=== PATIENT | female | born 1935 | race Caucasian/White ===

== ENCOUNTER 2017-06-21 | Inpatient (IN) | payer MEDICARE, OTHER ==
[2017-06-21] MEDS ORDERED: Albuterol/Ipratropium 3.0-0.5 MG/3 ML Neb Soln NEB ONE (00:12)
[2017-06-21] MEDS ORDERED: cefTRIAXone 1 GM in Sodium Chloride 0.9% 100 ML IV ONE (01:30)
[2017-06-21] MEDS ORDERED: Azithromycin 500 MG in Sodium Chloride 0.9% 250 ML IV ONE (01:31)
--- NOTE | 2017-06-21 01:36 | EDM.PDOC ---
ED HPI GENERAL MEDICAL PROBLEM - General Chief Complaint: Respiratory Problem Stated Complaint: CAME BY ALETA CARLTON Time Seen by Provider: 06/21/17 00:10 Source of Information: Reports: Patient, Family History Limitations: Reports: Altered Mental Status - History of Present Illness INITIAL COMMENTS - FREE TEXT/NARRATIVE: This is an 81-year-old female. Apparently today she was having a mild stomachache and this evening began to get short of breath and an ambulance was called and they noted her pulse ox was 66% on room air. Even on 6 L by nasal cannula because she doesn't tolerate the mask her pulse ox at 88%. I spoke to the daughter and she indicates that she noted recently that the patient's feet are somewhat puffy. She has no history of congestive heart failure no history of asthma. 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 The patient does have fairly severe dementia she is a DNR and DO NOT INTUBATE patient according to the daughter. I can get no further information from the patient herself. She does have a brokerage coordinator that stays with her but the brokerage coordinator did not come tonight and so I can't glean any further information. According to the daughter the patient and doing fine the last few days with no increasing cough no fever no chills no nausea vomiting or any other acute symptoms. - Related Data Allergies Allergy/AdvReac Type Severity Reaction Status Date / Time No Known Allergies Allergy Verified 06/21/17 00:12 Home Meds: Home Meds Cyanocobalamin (Vitamin B-12) [Vitamin B-12] 1 tab PO DAILY 11/08/15 [History] Solifenacin Succinate [Vesicare] 10 mg PO DAILY 11/08/15 [History] Donepezil [Aricept] 10 mg PO BEDTIME 09/29/16 [History] Metoprolol Succinate [Toprol XL] 25 mg PO DAILY 09/29/16 [History] Memantine [Namenda] 10 mg PO BID 10/03/16 [History] amLODIPine/atorvaSTATin [Amlodipine-Atorvast 10-20 mg] 1 tab PO DAILY 10/03/16 [ History] Pantoprazole [ProTONIX] 40 mg PO DAILY 06/21/17 [History] Potassium Chloride 1 tab PO DAILY 06/21/17 [History] Past Medical History HEENT History: Reports: Cataract, Other (See Below) Other HEENT History: cataract surgery Cardiovascular History: Reports: CAD, Hypertension Respiratory History: Reports: None Genitourinary History: Reports: Retention, Urinary [employer] History: Reports: Musculoskeletal History: Reports: Other (See Below) Other Musculoskeletal History: hip surgury Neurological History: Reports: Alzheimers Disease Psychiatric History: Reports: Alzheimers Disease Oncologic (Cancer) History: Reports: Bladder - Infectious Disease History Infectious Disease History: Reports: Chicken Pox, Influenza - Past Surgical History HEENT Surgical History: Reports: Cataract Surgery Respiratory Surgical History: Reports: None Oncologic Surgical History: Reports: None Dermatological Surgical History: Reports: None Social & Family History - Family History Cardiac: Reports: Hypertension Immunologic: Reports: None - Tobacco Use Smoking Status *Q: Light Tobacco Smoker Years of Tobacco use: 60 Packs/Tins Daily: 0.1 Used Tobacco, but Quit: No Second Hand Smoke Exposure: No - Caffeine Use Caffeine Use: Reports: Coffee - Recreational Drug Use Recreational Drug Use: No ED ROS GENERAL - Review of Systems Review Of Systems: See Below (Please note this review of systems is from the daughter) Constitutional: Denies: Fever, Chills HEENT: Reports: No Symptoms Respiratory: Reports: Shortness of Breath, Wheezing Cardiovascular: Reports: No Symptoms GI/Abdominal: Denies: Abdominal Pain, Nausea, Vomiting Neurological: Reports: Confusion Psychiatric: Reports: Confusion ED EXAM, GENERAL - Physical Exam Exam: See Below Exam Limited By: Altered Mental Status General Appearance: Alert, Anxious, Moderate Distress Eye Exam: Bilateral Eye: Normal Inspection Ears: Normal External Exam, Normal Canal, Normal TMs Nose: Normal Inspection Throat/Mouth: Normal Inspection, Normal Lips, Normal Oropharynx, Normal Voice, Other (Patient does have a hard time speaking without being short of breath) Head: Normocephalic Neck: Supple Respiratory/Chest: Decreased Breath Sounds, Crackles, Wheezing, Other ( Decreased breath sounds in all leavitt with worsening decreased lung sounds in the right base and there are some fine crackles noted). No: Rhonchi Cardiovascular: Regular Rate, Rhythm, Tachycardia GI/Abdominal: Soft, Non-Tender Back Exam: Full Range of Motion Extremities: Other (She is noted to have 1+ edema in her lower extremities bilaterally) Neurological: Alert, Other (Patient has dementia and so she really can't tell you if she is having pain or any recent events) Psychiatric: Anxious Skin Exam: Warm, Dry EKG INTERPRETATION EKG Interpretation Comments: EKG shows a sinus tachycardia, and appearance of an old inferior MO as noted, she has no acute ST elevation but she might have some mild ST depression in the lateral leads noted Course - Vital Signs Last Recorded V/S: Last Vital Signs Temp 100.3 F 06/21/17 00:03 Pulse 93 06/21/17 00:03 Resp 28 H 06/21/17 00:03 BP 144/89 H 06/21/17 00:03 Pulse Ox 91 L 06/21/17 00:25 - Orders/Labs/Meds Orders: Active Orders 24 hr Category Date Time Status EKG 12 Lead [EKG Documentation Completion] [RC] STAT Care 06/21/17 00:11 Active RT Aerosol Therapy [RC] ASDIRECTED Care 06/21/17 00:12 Active Chest 1V Frontal [CR] Stat Exams 06/21/17 00:11 Taken CULTURE BLOOD [BC] Stat Lab 06/21/17 00:30 Received CULTURE BLOOD [BC] Stat Lab 06/21/17 00:40 Received Azithromycin [Zithromax] 500 mg Med 06/21/17 01:31 Active Sodium Chloride 0.9% [Normal Saline] 250 ml IV ONETIME cefTRIAXone [Rocephin] 1 gm Med 06/21/17 01:30 Active Sodium Chloride 0.9% [Normal Saline] 100 ml IV ONETIME Blood Culture x2 Reflex Set [OM.PC] Stat Oth 06/21/17 00:12 Ordered Medication Orders Ceftriaxone Sodium 1 gm/ (Sodium Chloride) 100 mls @ 200 mls/hr IV ONETIME ONE Stop: 06/21/17 01:59 Last Admin: 06/21/17 01:36 Dose: 200 mls/hr Azithromycin 500 mg/ Sodium (Chloride) 250 mls @ 250 mls/hr IV ONETIME ONE Stop: 06/21/17 02:30 Labs: Laboratory Tests 06/21/17 06/21/17 06/21/17 Range/Units 00:10 00:10 00:10 WBC 12.97 H (3.98-10.04) K/mm3 RBC 3.69 L (3.98-5.22) M/mm3 Hgb 10.8 L (11.2-15.7) gm/L Hct 34.8 (34.1-44.9) % MCV 94.3 (79.4-94.8) fl MCH 29.3 (25.6-32.2) pg MCHC 31.0 L (32.2-35.5) g/dl RDW Std Deviation 47.4 H (36.4-46.3) fL Plt Count 229 (182-369) K/mm3 MPV 10.6 (9.4-12.3) fl Neut % (Auto) 85.7 H (34.0-71.1) % Lymph % (Auto) 6.5 L (19.3-51.7) % [place] % (Auto) 6.4 (4.7-12.5) % Eos % (Auto) 0.8 (0.7-5.8) Baso % (Auto) 0.4 (0.1-1.2) % Neut # (Auto) 11.12 H (1.56-6.13) K/mm3 Lymph # (Auto) 0.84 L (1.18-3.74) K/mm3 [place] # (Auto) 0.83 H (0.24-0.36) K/mm3 Eos # (Auto) 0.11 (0.04-0.36) K/mm3 Baso # (Auto) 0.05 (0.01-0.08) K/mm3 Manual Slide Review Abnormal smear Sodium 147 H (136-145) mEq/L Potassium 3.3 L (3.5-5.1) mEq/L Chloride 111 H (98-107) mEq/L Carbon Dioxide 26 (21-32) mEq/L Anion Gap 13.3 (5-15) BUN 30 H (7-18) mg/dL Creatinine 2.2 H (0.55-1.02) mg/dL Est Cr Clr Drug Dosing 14.36 mL/min Estimated GFR (MDRD) 21 (>60) mL/min BUN/Creatinine Ratio 13.6 L (14-18) Glucose 205 H (83-115) mg/dL Lactic Acid (0.4-2.0) mmol/L Calcium 8.6 (8.5-10.1) mg/dL Total Bilirubin 0.7 (0.2-1.0) mg/dL AST 59 H (15-37) U/L ALT 65 H (14-59) U/L Alkaline Phosphatase 131 H (46-116) U/L Troponin I 0.207 H* (0.00-0.056) ng/mL B-Natriuretic Peptide 2246 H (0-100) pg/mL Total Protein 6.8 (6.4-8.2) g/dl Albumin 3.4 (3.4-5.0) g/dl Globulin 3.4 gm/dL Albumin/Globulin Ratio 1.0 (1-2) 06/21/17 Range/Units 00:30 WBC (3.98-10.04) K/mm3 RBC (3.98-5.22) M/mm3 Hgb (11.2-15.7) gm/L Hct (34.1-44.9) % MCV (79.4-94.8) fl MCH (25.6-32.2) pg MCHC (32.2-35.5) g/dl RDW Std Deviation (36.4-46.3) fL Plt Count (182-369) K/mm3 MPV (9.4-12.3) fl Neut % (Auto) (34.0-71.1) % Lymph % (Auto) (19.3-51.7) % [place] % (Auto) (4.7-12.5) % Eos % (Auto) (0.7-5.8) Baso % (Auto) (0.1-1.2) % Neut # (Auto) (1.56-6.13) K/mm3 Lymph # (Auto) (1.18-3.74) K/mm3 [place] # (Auto) (0.24-0.36) K/mm3 Eos # (Auto) (0.04-0.36) K/mm3 Baso # (Auto) (0.01-0.08) K/mm3 Manual Slide Review Sodium (136-145) mEq/L Potassium (3.5-5.1) mEq/L Chloride (98-107) mEq/L Carbon Dioxide (21-32) mEq/L Anion Gap (5-15) BUN (7-18) mg/dL Creatinine (0.55-1.02) mg/dL Est Cr Clr Drug Dosing mL/min Estimated GFR (MDRD) (>60) mL/min BUN/Creatinine Ratio (14-18) Glucose (83-115) mg/dL Lactic Acid 1.6 (0.4-2.0) mmol/L Calcium (8.5-10.1) mg/dL Total Bilirubin (0.2-1.0) mg/dL AST (15-37) U/L ALT (14-59) U/L Alkaline Phosphatase (46-116) U/L Troponin I (0.00-0.056) ng/mL B-Natriuretic Peptide (0-100) pg/mL Total Protein (6.4-8.2) g/dl Albumin (3.4-5.0) g/dl Globulin gm/dL Albumin/Globulin Ratio (1-2) Meds: Medications Generic Name Dose Route Start Last Admin Trade Name Freq PRN Reason Stop Dose Admin Ceftriaxone Sodium 1 gm/ 100 mls @ 200 mls/hr 06/21/17 01:30 06/21/17 01:36 Sodium Chloride IV 06/21/17 01:59 200 mls/hr ONETIME ONE Administration Azithromycin 500 mg/ Sodium 250 mls @ 250 mls/hr 06/21/17 01:31 Chloride IV 06/21/17 02:30 ONETIME ONE Discontinued Medications Generic Name Dose Route Start Last Admin Trade Name Freq PRN Reason Stop Dose Admin Albuterol/Ipratropium 3 ml 06/21/17 00:12 06/21/17 00:21 Duoneb 3.0-0.5 Mg/3 Ml NEB 06/21/17 00:13 3 ml ONETIME ONE Administration - Re-Assessments/Exams Free Text/Narrative Re-Assessment/Exam: 06/21/17 01:55 I spoke to the family and the patient regarding the test results. I also spoke to Dr. Ortiz who is willing to put the patient in the hospital for further evaluation and treatment. Departure - Departure Time of Disposition: 01:55 Disposition: Admitted As Inpatient 66 Condition: Poor Clinical Impression: Hypoxemia, Renal insufficiency, Elevated troponin Pneumonia Qualifiers: Pneumonia type: due to unspecified organism Laterality: right Lung location: lower lobe of lung Qualified Code(s): J18.1 - Lobar pneumonia, unspecified organism Congestive heart failure Qualifiers: Congestive heart failure type: unspecified congestive heart failure type Congestive heart failure chronicity: acute Qualified Code(s): I50.9 - Heart failure, unspecified Dementia Qualifiers: Dementia type: Alzheimer's disease Alzheimer's disease onset: other onset Dementia behavioral disturbance: without behavioral disturbance Qualified Code(s ): G30.8 - Other Alzheimer's disease; F02.80 - Dementia in other diseases classified elsewhere without behavioral disturbance - Discharge Information Additional Instructions: I spoke with Dr. Ortiz she is willing to admit the patient for further evaluation and treatment ED Communication - ED Communication Date/Time Date: 06/21/17 Time Called: 01:57 - Discussed Case With (1) Discussed Case With (1): Admitting Provider Person/s Notified (1): Jammie Ortiz (Will Admit) - My Orders Last 24 Hours: My Active Orders 06/21/17 00:11 EKG 12 Lead [EKG Documentation Completion] [RC] STAT Chest 1V Frontal [CR] Stat 06/21/17 00:12 RT Aerosol Therapy [RC] ASDIRECTED Blood Culture x2 Reflex Set [OM.PC] Stat 06/21/17 00:30 CULTURE BLOOD [BC] Stat 06/21/17 00:40 CULTURE BLOOD [BC] Stat 06/21/17 01:30 cefTRIAXone [Rocephin] 1 gm Sodium Chloride 0.9% [Normal Saline] 100 ml IV ONETIME 06/21/17 01:31 Azithromycin [Zithromax] 500 mg Sodium Chloride 0.9% [Normal Saline] 250 ml IV ONETIME - Assessment/Plan Last 24 Hours: My Active Orders 06/21/17 00:11 EKG 12 Lead [EKG Documentation Completion] [RC] STAT Chest 1V Frontal [CR] Stat 06/21/17 00:12 RT Aerosol Therapy [RC] ASDIRECTED Blood Culture x2 Reflex Set [OM.PC] Stat 06/21/17 00:30 CULTURE BLOOD [BC] Stat 06/21/17 00:40 CULTURE BLOOD [BC] Stat 06/21/17 01:30 cefTRIAXone [Rocephin] 1 gm Sodium Chloride 0.9% [Normal Saline] 100 ml IV ONETIME 06/21/17 01:31 Azithromycin [Zithromax] 500 mg Sodium Chloride 0.9% [Normal Saline] 250 ml IV ONETIME
[2017-06-21] MEDS ORDERED: Furosemide 40 MG/4 ML VIAL IVPUSH ONE (01:58)
[2017-06-21] MEDS ORDERED: Sodium Chloride 0.9% 1,000 ML IV SCH (03:30)
[2017-06-21] MEDS: Enoxaparin 30 MG/0.3 ML Syringe SUBCUT SCH (10:12)
[2017-06-21] MEDS: Memantine 10 MG Tab PO SCH ×2 (10:13→21:18)
[2017-06-21] MEDS ORDERED: Albuterol 0.083% 2.5 MG/3 ML Neb Soln NEB PRN (11:41)
[2017-06-21] MEDS ORDERED: hydrALAZINE 20 MG/ML SDV IVPUSH PRN (11:45)
[2017-06-21] MEDS ORDERED: Sodium Chloride 0.45% 1,000 ML IV SCH (11:45)
--- NOTE | 2017-06-21 11:55 | PCM.HP ---
H&P History of Present Illness - General Date of Service: 06/21/17 Admit Problem/Dx: Admission Diagnosis/Problem Admission Diagnosis/Problem Pneumonia Source of Information: Family, Provider History Limitations: Reports: No Limitations - History of Present Illness Initial Comments - Free Text/Narative: 81 year old female with Alzheimer's dementia, lives at home. She reportedly complained of abdominal discomfort. The EMS was called presumably by her clinical manager home care, she was treated for respiratory distress. The EMS documented an O2 saturation, 66% on room air cf 88% on 6 liters. Lab results documented BNP>2000 ; Tn 0.207; WBC 12.97 (85.7 neutrophils); K 3.3; Cr 2.2. She is being admitted to [facility]. Her daughter has indicated that she is DNR/DNI with comfort care this am. Onset of Symptoms: Reports: Gradual Symptom Onset Date: 06/20/17 Duration of Symptoms: Reports: Hour(s): Location: Reports: Abdomen Quality: Reports: Ache Severity: Moderate Improves with: Reports: Medication Worsens with: Reports: Eating Associated Symptoms: Reports: Confusion, Weakness - Related Data Allergies/Adverse Reactions: Allergies Allergy/AdvReac Type Severity Reaction Status Date / Time No Known Allergies Allergy Verified 06/21/17 00:12 Home Medications: Home Meds Cyanocobalamin (Vitamin B-12) [Vitamin B-12] 1 tab PO DAILY 11/08/15 [History] Solifenacin Succinate [Vesicare] 10 mg PO DAILY 11/08/15 [History] Donepezil [Aricept] 10 mg PO BEDTIME 09/29/16 [History] Metoprolol Succinate [Toprol XL] 25 mg PO DAILY 09/29/16 [History] Memantine [Namenda] 10 mg PO BID 10/03/16 [History] amLODIPine/atorvaSTATin [Amlodipine-Atorvast 10-20 mg] 1 tab PO DAILY 10/03/16 [ History] Pantoprazole [ProTONIX] 40 mg PO DAILY 06/21/17 [History] Past Medical History HEENT History: Reports: Cataract, Other (See Below) Other HEENT History: cataract surgery Cardiovascular History: Reports: CAD, Hypertension Respiratory History: Reports: None Genitourinary History: Reports: Retention, 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: Musculoskeletal History: Reports: Other (See Below) Other Musculoskeletal History: hip surgury Neurological History: Reports: Alzheimers Disease Psychiatric History: Reports: Alzheimers Disease Oncologic (Cancer) History: Reports: Bladder - Infectious Disease History Infectious Disease History: Reports: Chicken Pox, Influenza - Past Surgical History HEENT Surgical History: Reports: Cataract Surgery Cardiovascular Surgical History: Reports: None Respiratory Surgical History: Reports: None Female Surgical History: Reports: None Neurological Surgical History: Reports: None Oncologic Surgical History: Reports: None Dermatological Surgical History: Reports: None Social & Family History - Family History Family Medical History: Noncontributory Cardiac: Reports: Hypertension Immunologic: Reports: None - Tobacco Use Smoking Status *Q: Current Every Day Smoker Years of Tobacco use: 65 Packs/Tins Daily: 0.2 Used Tobacco, but Quit: No Second Hand Smoke Exposure: Yes - Caffeine Use Caffeine Use: Reports: None - Recreational Drug Use Recreational Drug Use: No H&P Review of Systems - Review of Systems: Review Of Systems: See Below General: Reports: Weakness HEENT: Reports: No Symptoms Pulmonary: Reports: No Symptoms Cardiovascular: Reports: No Symptoms Gastrointestinal: Reports: Abdominal Pain Genitourinary: Reports: No Symptoms Musculoskeletal: Reports: No Symptoms Skin: Reports: No Symptoms Psychiatric: Reports: Confusion Neurological: Reports: Confusion Hematologic/Lymphatic: Reports: No Symptoms Immunologic: Reports: No Symptoms Exam - Exam Exam: See Below - Vital Signs Vital Signs: Last Vital Signs Temp 37.2 C 06/21/17 07:27 Pulse 82 06/21/17 07:27 Resp 20 06/21/17 07:27 BP 136/80 06/21/17 07:27 Pulse Ox 88 L 06/21/17 10:49 Weight: 57.924 kg - Exam Quality Assessment: Supplemental Oxygen, DVT Prophylaxis General: Alert, Oriented, Cooperative HEENT: Conjunctiva Clear, Nares Patent, Normal Nasal Septum, Posterior Pharynx Clear, Pupils Equal, Pupils Reactive Neck: Supple, Trachea Midline Lungs: Normal Respiratory Effort, Decreased Breath Sounds, Crackles, Wheezing Cardiovascular: Regular Rate, Regular Rhythm GI/Abdominal Exam: Normal Bowel Sounds, Soft, Non-Tender, No Organomegaly, No Distention (Female) Exam: Deferred Rectal (Female) Exam: Deferred Back Exam: Normal Inspection Extremities: Normal Inspection, Pedal Edema Skin: Warm Neurological: Cranial Nerves Intact Neuro Extensive - Mental Status: Alert, Normal Mood/Affect, Normal Cognition Neuro Extensive - Motor, Sensory, Reflexes: CN II-XII Intact Psychiatric: Alert - Patient Data Lab Results Last 24 hrs: Laboratory Results - last 24 hr 06/21/17 06/21/17 06/21/17 Range/Units 05:41 05:41 05:41 WBC 9.51 (3.98-10.04) K/mm3 RBC 3.33 L (3.98-5.22) M/mm3 Hgb 9.9 L (11.2-15.7) gm/L Hct 31.2 L (34.1-44.9) % MCV 93.7 (79.4-94.8) fl MCH 29.7 (25.6-32.2) pg MCHC 31.7 L (32.2-35.5) g/dl RDW Std Deviation 47.0 H (36.4-46.3) fL Plt Count 188 (182-369) K/mm3 MPV 10.9 (9.4-12.3) fl Sodium 147 H (136-145) mEq/L Potassium 3.3 L (3.5-5.1) mEq/L Chloride 109 H (98-107) mEq/L Carbon Dioxide 26 (21-32) mEq/L Anion Gap 15.3 H (5-15) BUN 30 H (7-18) mg/dL Creatinine 1.9 H (0.55-1.02) mg/dL Est Cr Clr Drug Dosing 20.05 mL/min Estimated GFR (MDRD) 25 (>60) mL/min BUN/Creatinine Ratio 15.8 (14-18) Glucose 144 H (83-115) mg/dL Calcium 8.1 L (8.5-10.1) mg/dL B-Natriuretic Peptide 2571 H (0-100) pg/mL Result Diagrams: 06/21/17 05:41 06/21/17 05:41 *Q Meaningful Use (ADM) - VTE *Q VTE Criteria *Q: - Stroke *Q Stroke Criteria *Q: - AMI *Q AMI Criteria *Q: - Problem List (1) Confusion SNOMED Code(s): 166124921 ICD Code: R41.0 - DISORIENTATION, UNSPECIFIED Status: Acute Current Visit : Yes (2) Congestive heart failure SNOMED Code(s): 63903907 ICD Code: I50.9 - HEART FAILURE, UNSPECIFIED Status: Acute Current Visit : Yes Qualifiers: Congestive heart failure type: unspecified congestive heart failure type Congestive heart failure chronicity: acute Qualified Code(s): I50.9 - Heart failure, unspecified (3) Dementia SNOMED Code(s): 71555255 ICD Code: F03.90 - UNSPECIFIED DEMENTIA WITHOUT BEHAVIORAL DISTURBANCE Status: Acute Current Visit: Yes Qualifiers: Dementia type: Alzheimer's disease Alzheimer's disease onset: other onset Dementia behavioral disturbance: without behavioral disturbance Qualified Code(s): G30.8 - Other Alzheimer's disease; F02.80 - Dementia in other diseases classified elsewhere without behavioral disturbance (4) Hypoxemia SNOMED Code(s): 206542567 ICD Code: R09.02 - HYPOXEMIA Status: Acute Current Visit: Yes (5) Pneumonia SNOMED Code(s): 613628468 ICD Code: J18.9 - PNEUMONIA, UNSPECIFIED ORGANISM Status: Acute Current Visit: Yes Qualifiers: Pneumonia type: due to unspecified organism Laterality: right Lung location: lower lobe of lung Qualified Code(s): J18.1 - Lobar pneumonia, unspecified organism (6) Renal insufficiency SNOMED Code(s): 665482760, 257552906 ICD Code: N28.9 - DISORDER OF KIDNEY AND URETER, UNSPECIFIED Status: Acute Current Visit: Yes (7) Anemia SNOMED Code(s): 945062130 ICD Code: D64.9 - ANEMIA, UNSPECIFIED Status: Acute Current Visit: No Qualifiers: Anemia type: unspecified type Qualified Code(s): D64.9 - Anemia, unspecified (8) Demand ischemia SNOMED Code(s): 927545232 ICD Code: I24.8 - OTHER FORMS OF ACUTE ISCHEMIC HEART DISEASE Status: Acute Current Visit: No (9) Hypertension SNOMED Code(s): 74637566 ICD Code: I10 - ESSENTIAL (PRIMARY) HYPERTENSION Status: Acute Current Visit: Yes (10) Diabetes mellitus SNOMED Code(s): 85137129 ICD Code: E11.9 - TYPE 2 DIABETES MELLITUS WITHOUT COMPLICATIONS Status: Acute Current Visit: Yes (11) Elevated troponin SNOMED Code(s): 150193086, 442739351 ICD Code: R74.8 - ABNORMAL LEVELS OF OTHER SERUM ENZYMES Status: Acute Current Visit: Yes Problem List Initiated/Reviewed/Updated: Yes Orders Last 24hrs: Active Orders 24 hr Category Date Time Status Patient Status [ADT] Routine ADT 06/21/17 03:08 Active Activity as Tolerated [RC] .Routine Care 06/21/17 11:37 Ordered Antiembolic Devices [RC] BID Care 06/21/17 03:57 Active Oxygen Therapy [RC] ASDIRECTED Care 06/21/17 03:25 Active RT Aerosol Therapy [RC] ASDIRECTED Care 06/21/17 11:40 Ordered Up With Assistance [RC] ASDIRECTED Care 06/21/17 03:24 Active Consult to Occupational Therapy [OT Evaluation and Cons 06/22/17 09:00 Ordered Treatment] [CONS] Routine Consult to Physical Therapy [PT Evaluation and Cons 06/22/17 09:00 Ordered Treatment] [CONS] Routine Consult to Engine Mechanic [CONS] Routine Cons 06/22/17 09:00 Ordered Full Liquid Diet [DIET] Diet 06/21/17 Breakfast Active B-TYPE NATRIURETIC PEPTIDE,BNP [CHEM] Routine Lab 06/23/17 05:00 Ordered BASIC METABOLIC PANEL,BMP [CHEM] DAILY Lab 06/22/17 05:00 Ordered BASIC METABOLIC PANEL,BMP [CHEM] DAILY Lab 06/23/17 05:00 Ordered BASIC METABOLIC PANEL,BMP [CHEM] DAILY Lab 06/24/17 05:00 Ordered BASIC METABOLIC PANEL,BMP [CHEM] DAILY Lab 06/25/17 05:00 Ordered BLOOD GAS ARTERIAL [BG] Urgent Lab 06/21/17 11:38 Ordered CBC WITH AUTO DIFF [HEME] DAILY Lab 06/22/17 05:00 Ordered CBC WITH AUTO DIFF [HEME] DAILY Lab 06/23/17 05:00 Ordered CBC WITH AUTO DIFF [HEME] DAILY Lab 06/24/17 05:00 Ordered CBC WITH AUTO DIFF [HEME] DAILY Lab 06/25/17 05:00 Ordered CRP [C-REACTIVE PROTEIN] [CHEM] DAILY Lab 06/22/17 05:00 Ordered CRP [C-REACTIVE PROTEIN] [CHEM] DAILY Lab 06/23/17 05:00 Ordered CRP [C-REACTIVE PROTEIN] [CHEM] DAILY Lab 06/24/17 05:00 Ordered CRP [C-REACTIVE PROTEIN] [CHEM] DAILY Lab 06/25/17 05:00 Ordered MAGNESIUM [CHEM] DAILY Lab 06/22/17 05:00 Ordered MAGNESIUM [CHEM] DAILY Lab 06/23/17 05:00 Ordered MAGNESIUM [CHEM] DAILY Lab 06/24/17 05:00 Ordered MAGNESIUM [CHEM] DAILY Lab 06/25/17 05:00 Ordered MYCOPLASMA PNEUMONIAE IGM AB [CHEM] Routine Lab 06/21/17 16:00 Ordered Acetaminophen [Tylenol] Med 06/21/17 11:54 Ordered 650 mg PO Q6H PRN Albuterol [Proventil Neb Soln] Med 06/21/17 11:41 Ordered 2.5 mg NEB Q4HRRT PRN Albuterol/Ipratropium [DuoNeb 3.0-0.5 MG/3 ML] Med 06/21/17 13:00 Ordered 3 ml NEB QID Azithromycin [Zithromax] 500 mg Med 06/22/17 09:45 Ordered Sodium Chloride 0.9% [Normal Saline] 250 ml IV Q24H Donepezil [Aricept] Med 06/21/17 21:00 Active 10 mg PO BEDTIME Enoxaparin [Lovenox] Med 06/21/17 09:00 Active 30 mg SUBCUT DAILY Furosemide [Lasix] Med 06/21/17 16:00 Once 20 mg IVPUSH ONETIME ONE Memantine [Namenda] Med 06/21/17 10:00 Active 10 mg PO BID Metoprolol Succinate [Toprol XL] Med 06/22/17 11:00 Active 25 mg PO DAILY Pantoprazole [ProTONIX] Med 06/22/17 10:00 Active 40 mg PO DAILY Sodium Chloride 0.45% 1,000 ml Med 06/21/17 11:45 Ordered IV ASDIRECTED Sodium Chloride 0.9% [Normal Saline] 1,000 ml Med 06/21/17 03:30 Active IV ASDIRECTED Trospium [Sanctura] Med 06/22/17 06:00 Active 20 mg PO ACBREAKFAST cefTRIAXone [Rocephin] 2 gm Med 06/22/17 13:00 Ordered Sodium Chloride 0.9% [Normal Saline] 100 ml IV Q24H hydrALAZINE [Apresoline] Med 06/21/17 11:45 Ordered 20 mg IVPUSH Q8H PRN MEKA Hose [Antiembolic Hose] [OM.PC] Routine Oth 06/21/17 03:56 Ordered Code Status [Resuscitation Status] Routine Resus Stat 06/21/17 03:25 Ordered Medication Orders Acetaminophen (Tylenol) 650 mg PO Q6H PRN PRN Reason: Fever Albuterol (Proventil Neb Soln) 2.5 mg NEB Q4HRRT PRN PRN Reason: Shortness of Breath Albuterol/Ipratropium (Duoneb 3.0-0.5 Mg/3 Ml) 3 ml NEB QID USMAN Donepezil HCl (Aricept) 10 mg PO BEDTIME USMAN Enoxaparin Sodium (Lovenox) 30 mg SUBCUT DAILY [facility] Last Admin: 06/21/17 10:12 Dose: 30 mg Furosemide (Lasix) 20 mg IVPUSH ONETIME ONE Stop: 06/21/17 16:01 Hydralazine HCl (Apresoline) 20 mg IVPUSH Q8H PRN PRN Reason: Hypertension Sodium Chloride (Normal Saline) 1,000 mls @ 25 mls/hr IV ASDIRECTED USMAN Stop: 06/25/17 03:31 Last Admin: 06/21/17 07:12 Dose: 25 mls/hr Azithromycin 500 mg/ Sodium (Chloride) 250 mls @ 250 mls/hr IV Q24H USMAN Sodium Chloride (Sodium Chloride 0.45%) 1,000 mls @ 50 mls/hr IV ASDIRECTED [facility]MAN Ceftriaxone Sodium 2 gm/ (Sodium Chloride) 100 mls @ 200 mls/hr IV Q24H USMAN Memantine (Namenda) 10 mg PO BID [facility] Last Admin: 06/21/17 10:13 Dose: 10 mg Metoprolol Succinate (Toprol Xl) 25 mg PO DAILY [facility] Pantoprazole Sodium (Protonix) 40 mg PO DAILY [facility] Trospium (Sanctura) 20 mg PO ACBREAKFAST [facility] Assessment/Plan Comment:: Impression: Febrile with AMS, RLL PNA Hypoxia Systolic HF, LVEF unknown AMI, can not exclude type 1 Chronic CAD HTN HLD Plan: Continue Zithromax/Rocephin Nebs O2, titrate sat>90% Swallow study Home meds Daily Labs DVT/GI prophylaxis SW/PT/OT DNR/DNI/Comfort Care
[2017-06-21] MEDS: Potassium Chloride 10% 20 MEQ/15 ML Soln 30 ML UD Cup PO SCH (15:20)
[2017-06-21] MEDS: Acetaminophen Soln 650 MG/20.3 ML UD Cup PO PRN ×2 (15:33→23:56)
[2017-06-21] MEDS: Albuterol/Ipratropium 3.0-0.5 MG/3 ML Neb Soln NEB SCH ×2 (15:37→20:37)
[2017-06-21] MEDS ORDERED: Metoprolol Succinate 25 MG Tab.ER PO ONE (15:40)
[2017-06-21] MEDS ORDERED: Acetaminophen 650 MG Supp RECTAL PRN (15:43)
[2017-06-21] MEDS ORDERED: Furosemide 20 MG/2 ML VIAL IVPUSH ONE (16:00)
[2017-06-21] MEDS ORDERED: Pantoprazole 40 MG Tab.CR PO ONE (16:00)
[2017-06-21] MEDS: Donepezil 10 MG Tab PO SCH (21:18)
[2017-06-22] MEDS: Albuterol/Ipratropium 3.0-0.5 MG/3 ML Neb Soln NEB SCH ×4 (06:39→20:48)
[2017-06-22] MEDS: Trospium 20 MG Tab PO SCH (08:06)
[2017-06-22] MEDS: Enoxaparin 30 MG/0.3 ML Syringe SUBCUT SCH (08:06)
[2017-06-22] MEDS: Memantine 10 MG Tab PO SCH ×2 (08:07→20:14)
[2017-06-22] MEDS: Potassium Chloride 10% 20 MEQ/15 ML Soln 30 ML UD Cup PO SCH (08:08)
--- NOTE | 2017-06-22 08:14 | CR ---
Chest: Portable view of the chest was obtained. Comparison: Previous chest x-ray of 11/08/15. Heart is enlarged. Pulmonary vessels are increased. Curly B lines compatible with interstitial edema is seen. More focal density seen within the right mid to lower lung which may represent asymmetric pulmonary edema versus pneumonia. Small pleural effusions are seen. Impression: 1. Cardiomegaly with pulmonary vascular congestion and interstitial edema. 2. Focal areas of increased density within the right mid and lower lung. As mentioned above, this could represent asymmetric pulmonary edema or pneumonia. Diagnostic code #3
[2017-06-22] MEDS: Pantoprazole 40 MG Tab.CR PO SCH ×2 (08:19→09:42)
[2017-06-22] MEDS: Metoprolol Succinate 25 MG Tab.ER PO SCH (08:20)
[2017-06-22] MEDS: Acetaminophen Soln 650 MG/20.3 ML UD Cup PO PRN ×2 (08:22→21:09)
--- NOTE | 2017-06-22 08:47 | PCM.PN ---
- General Info Date of Service: 06/22/17 Admission Dx/Problem (Free Text): Admission Diagnosis/Problem Admission Diagnosis/Problem Pneumonia Subjective Update: Follow Up Functional Status: Reports: Pain Controlled, Tolerating Diet, Urinating. Denies : New Symptoms - Review of Systems General: Denies: Fever, Weakness, Fatigue, Malaise, Chills HEENT: Reports: No Symptoms Pulmonary: Reports: Shortness of Breath. Denies: Wheezing Cardiovascular: Denies: Chest Pain Gastrointestinal: Denies: Abdominal Pain, Difficulty Swallowing, Nausea, Vomiting Genitourinary: Reports: No Symptoms Musculoskeletal: Reports: No Symptoms Skin: Reports: No Symptoms Neurological: Denies: Confusion, Difficulty Walking, Weakness, Gait Disturbance Psychiatric: Denies: Depression, Anxiety, Agitation, Hallucinations Systems Review Comment:: No overnight or acute issues. She "feels better". She has no new complaints. She is currently on 8L FM sating at 90%. - Patient Data Vitals - Most Recent: Last Vital Signs Temp 38.1 C 06/22/17 08:23 Pulse 102 H 06/22/17 08:23 Resp 24 H 06/22/17 08:10 BP 163/79 H 06/22/17 08:20 Pulse Ox 88 L 06/22/17 08:23 Weight - Most Recent: 56.971 kg I&O - Last 24 Hours: Intake & Output 06/21/17 06/22/17 06/22/17 22:59 06:59 14:59 Intake Total 1071 160 Output Total 700 400 Balance 371 -240 Lab Results Last 24 Hours: Laboratory Results - last 24 hr 06/21/17 06/22/17 06/22/17 Range/Units 11:38 05:40 05:40 WBC 10.03 (3.98-10.04) K/mm3 RBC 3.45 L (3.98-5.22) M/mm3 Hgb 10.3 L (11.2-15.7) gm/L Hct 32.3 L (34.1-44.9) % MCV 93.6 (79.4-94.8) fl MCH 29.9 (25.6-32.2) pg MCHC 31.9 L (32.2-35.5) g/dl RDW Std Deviation 47.2 H (36.4-46.3) fL Plt Count 183 (182-369) K/mm3 MPV 11.1 (9.4-12.3) fl Neut % (Auto) 71.9 H (34.0-71.1) % Lymph % (Auto) 16.6 L (19.3-51.7) % [place] % (Auto) 10.4 (4.7-12.5) % Eos % (Auto) 0.4 L (0.7-5.8) Baso % (Auto) 0.6 (0.1-1.2) % Neut # (Auto) 7.22 H (1.56-6.13) K/mm3 Lymph # (Auto) 1.66 (1.18-3.74) K/mm3 [place] # (Auto) 1.04 H (0.24-0.36) K/mm3 Eos # (Auto) 0.04 (0.04-0.36) K/mm3 Baso # (Auto) 0.06 (0.01-0.08) K/mm3 Manual Slide Review Not Reportable Puncture Site Rt radial ABG pH 7.49 H (7.35-7.45) ABG pCO2 35.7 (35.0-45.0) mmHg ABG pO2 66.0 L (80.0-100.0) mmHg ABG HCO3 26.8 H (22.0-26.0) meq/L ABG O2 Saturation 90.4 L (96.0-97.0) % ABG Base Excess 3.7 H (-2-2.0) Ramon Test Positive A-a Gradient 209 mmHg O2 Delivery Device Simple mask Oxygen Flow Rate 8.0 FiO2 50.00 (21.00-100.00) % Sodium 146 H (136-145) mEq/L Potassium 3.4 L (3.5-5.1) mEq/L Chloride 108 H (98-107) mEq/L Carbon Dioxide 28 (21-32) mEq/L Anion Gap 13.4 (5-15) BUN 31 H (7-18) mg/dL Creatinine 1.6 H (0.55-1.02) mg/dL Est Cr Clr Drug Dosing 23.81 mL/min Estimated GFR (MDRD) 31 (>60) mL/min BUN/Creatinine Ratio 19.4 H (14-18) Glucose 107 (83-115) mg/dL Calcium 8.4 L (8.5-10.1) mg/dL Magnesium 1.8 (1.8-2.4) mg/dl C-Reactive Protein 6.0 H* (<1.0) mg/dL Med Orders - Current: Current Medications Acetaminophen (Tylenol) 650 mg PO Q6H PRN PRN Reason: Fever Last Admin: 06/22/17 08:22 Dose: 650 mg Acetaminophen (Tylenol) 650 mg RECTAL Q6H PRN PRN Reason: Fever Albuterol (Proventil Neb Soln) 2.5 mg NEB Q4HRRT PRN PRN Reason: Shortness of Breath Last Admin: 06/21/17 12:21 Dose: 2.5 mg Albuterol/Ipratropium (Duoneb 3.0-0.5 Mg/3 Ml) 3 ml NEB QIDRT [facility] Last Admin: 06/22/17 06:39 Dose: 3 ml Donepezil HCl (Aricept) 10 mg PO BEDTIME [facility] Last Admin: 06/21/17 21:18 Dose: 10 mg Enoxaparin Sodium (Lovenox) 30 mg SUBCUT DAILY [facility] Last Admin: 06/22/17 08:06 Dose: 30 mg Hydralazine HCl (Apresoline) 20 mg IVPUSH Q8H PRN PRN Reason: Hypertension Azithromycin 500 mg/ Sodium (Chloride) 250 mls @ 250 mls/hr IV Q24H [facility] Ceftriaxone Sodium 2 gm/ (Sodium Chloride) 100 mls @ 200 mls/hr IV Q24H [facility] Memantine (Namenda) 10 mg PO BID [facility] Last Admin: 06/22/17 08:07 Dose: 10 mg Metoprolol Succinate (Toprol Xl) 25 mg PO DAILY [facility] Last Admin: 06/22/17 08:20 Dose: 25 mg Pantoprazole Sodium (Protonix) 40 mg PO DAILY [facility] Last Admin: 06/22/17 08:19 Dose: 40 mg Potassium Chloride (Potassium Chloride) 40 meq PO DAILY [facility] Stop: 06/23/17 09:01 Last Admin: 06/22/17 08:08 Dose: 40 meq Trospium (Sanctura) 20 mg PO ACBREAKFAST [facility] Last Admin: 06/22/17 08:06 Dose: 20 mg Discontinued Medications Albuterol/Ipratropium (Duoneb 3.0-0.5 Mg/3 Ml) 3 ml NEB ONETIME ONE Stop: 06/21/17 00:13 Last Admin: 06/21/17 00:21 Dose: 3 ml Furosemide (Lasix) 20 mg IVPUSH NOW ONE Stop: 06/21/17 01:59 Last Admin: 06/21/17 02:11 Dose: 20 mg Furosemide (Lasix) 20 mg IVPUSH ONETIME ONE Stop: 06/21/17 16:01 Last Admin: 06/21/17 15:20 Dose: 20 mg Ceftriaxone Sodium 1 gm/ (Sodium Chloride) 100 mls @ 200 mls/hr IV ONETIME ONE Stop: 06/21/17 01:59 Last Admin: 06/21/17 01:36 Dose: 200 mls/hr Azithromycin 500 mg/ Sodium (Chloride) 250 mls @ 250 mls/hr IV ONETIME ONE Stop: 06/21/17 02:30 Last Admin: 06/21/17 02:18 Dose: 250 mls/hr Sodium Chloride (Normal Saline) 1,000 mls @ 25 mls/hr IV ASDIRECTED [facility] Stop: 06/25/17 03:31 Last Admin: 06/21/17 07:12 Dose: 25 mls/hr Sodium Chloride (Sodium Chloride 0.45%) 1,000 mls @ 50 mls/hr IV ASDIRECTED [facility] Last Admin: 06/21/17 12:36 Dose: 50 mls/hr Metoprolol Succinate (Toprol Xl) 25 mg PO ONETIME ONE Stop: 06/21/17 15:41 Last Admin: 06/21/17 15:52 Dose: 25 mg Pantoprazole Sodium (Protonix) 40 mg PO ONETIME ONE Stop: 06/21/17 16:01 Last Admin: 06/21/17 15:52 Dose: 40 mg - Exam Quality Assessment: Supplemental Oxygen General: Alert, Oriented, Cooperative, No Acute Distress, Other (Comfortable) HEENT: Pupils Equal, Pupils Reactive, EOMI, Mucous Membr. Moist/[place] Neck: Trachea Midline, No JVD, No Thyromegaly, Other (No accesory musckle use ) Lungs: Normal Respiratory Effort, Decreased Breath Sounds, Other (midsternal scar) Cardiovascular: Regular Rate, Regular Rhythm GI/Abdominal Exam: Normal Bowel Sounds, Soft, Non-Tender, No Organomegaly, No Distention, No Abnormal Bruit, No Mass (Female) Exam: Deferred Back Exam: Normal Inspection, Decreased Range of Motion Extremities: Normal Inspection, Normal Range of Motion, Non-Tender, No Pedal Edema, Normal Capillary Refill Skin: Warm, Dry, Intact Neurological: No New Focal Deficit Psy/Mental Status: Alert, Normal Affect, Normal Mood - Problem List Review Problem List Initiated/Reviewed/Updated: Yes - Plan Plan:: Impression: Acute: RLL PNA - Risk factor:Alzheimer's Dementia (High risk for Aspiration), Hx/o COPD and Still on Active Smoker - IS Q2 awake - Continue IV Rocephin and Azithromycin - Follow Up CXR in AM Hypoxia - Likely 2/2 above +/- CHF - Continue Supplemental O2 - Titrate to keep O2 sat bet 88-90% - RT care Systolic HF, LVEF unknown - Hx/o CABG - No 2D echo avail for review - Daily diuretic - BNP 2246 ---> 2571 - 2D echo now - Salt restriction AMI, can not exclude type 1 - Has chronic Troponin Leak since 11/08/2015 - Continue Lovenox SubQ, BB and Statin - Start low dose ASA at 81 mg po daily in am and 162 mg po x 1 now Resolved: S/p Febrile with AMS Chronic: CAD S/p CABG Hx/o COPD HTN HLD CKD Stage 3 OAB/Urinary Retention Alzheimer's Dementia Nicotine Dependence Vit B12 Deficiency Hx/o Melena and GI Bleed Plan: She is clinically much better Continue current treatment Resume regular home diet after bedside swallow Routine AM Labs DVT/GI prophylaxis SW/PT/OT Additional orders as above Code Status: DNR/DNI/Comfort Care
[2017-06-22] MEDS ORDERED: Azithromycin 500 MG in Sodium Chloride 0.9% 250 ML IV SCH (10:00)
[2017-06-22] MEDS ORDERED: cefTRIAXone 2 GM in Sodium Chloride 0.9% 100 ML IV SCH (13:00)
[2017-06-22] MEDS ORDERED: Aspirin 81 MG Tab.EC PO ONE (14:00)
[2017-06-22] MEDS ORDERED: Bumetanide 1 MG/4 ML MDV IVPUSH ONE (14:00)
[2017-06-22] MEDS ORDERED: Morphine 2 MG/ML Syringe ONE (16:13)
[2017-06-22] MEDS: Morphine 2 MG/ML Syringe IVPUSH PRN ×2 (16:18→19:34)
[2017-06-22] MEDS: Donepezil 10 MG Tab PO SCH (20:14)
[2017-06-22] MEDS: LORazepam 2 MG/ML MDV IVPUSH PRN (21:07)
[2017-06-23] MEDS: Morphine 2 MG/ML Syringe IVPUSH PRN (03:09)
[2017-06-23] MEDS: LORazepam 2 MG/ML MDV IVPUSH PRN (05:00)
[2017-06-23] MEDS: Metoprolol Tartrate 5 MG/5 ML SDV IVPUSH PRN ×2 (06:04→08:29)
[2017-06-23] MEDS: Albuterol/Ipratropium 3.0-0.5 MG/3 ML Neb Soln NEB SCH ×2 (06:29→10:09)
[2017-06-23] MEDS ORDERED: Bumetanide 1 MG/4 ML MDV IVPUSH ONE (06:49)
[2017-06-23] MEDS ORDERED: Morphine 2 MG/ML Syringe IVPUSH PRN (06:49)
[2017-06-23] MEDS: Trospium 20 MG Tab PO SCH (06:51)
[2017-06-23] MEDS ORDERED: LORazepam 2 MG/ML MDV IVPUSH PRN (06:53)
[2017-06-23] MEDS ORDERED: methylPREDNISolone Sodium Succinate 125 MG/2 ML SDV IVPUSH SCH (07:00)
[2017-06-23] MEDS ORDERED: Levofloxacin/Dextrose 5%-Water 750 MG in Premix Bag 1 BAG IV SCH (08:00)
[2017-06-23] MEDS: Metoprolol Succinate 25 MG Tab.ER PO SCH (08:23)
[2017-06-23] MEDS: Pantoprazole 40 MG Tab.CR PO SCH (08:24)
[2017-06-23] MEDS: Memantine 10 MG Tab PO SCH (08:25)
[2017-06-23] MEDS: Enoxaparin 30 MG/0.3 ML Syringe SUBCUT SCH (08:25)
--- NOTE | 2017-06-23 08:25 | PCM.PN ---
- General Info Date of Service: 06/23/17 Admission Dx/Problem (Free Text): Admission Diagnosis/Problem Admission Diagnosis/Problem Pneumonia Patient seen early this morning; nursing reported hypoxic most of the night with sats at best of 90% on NRB mask despite efforts and RT interventions/ treatments. Patient anxious early in shift, but ativan order given and rec'd with some relief- rested well after that. Patient is alert and pleasant when I see her this morning, does not appear in distress at all. Confused. Denies c/o pain, SOB, CP, unsure of how much she comprehends as also has baseline dementia and talks jibberish most of our conversation. Nursing reports during my exam and visit is "the best she has been all night". 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 B/P's are stable. Functional Status: Reports: Pain Controlled, Tolerating Diet, Ambulating (up to BR with assist, HR up when OOB and ambulatory), Urinating - Review of Systems General: Denies: Fever, Fatigue HEENT: Reports: No Symptoms Pulmonary: Reports: Cough Cardiovascular: Denies: Chest Pain (d) - Patient Data Vitals - Most Recent: Last Vital Signs Temp 97.5 F 06/23/17 07:47 Pulse 142 H 06/23/17 07:47 Resp 12 06/23/17 07:47 BP 134/64 06/23/17 07:47 Pulse Ox 87 L 06/23/17 07:47 Weight - Most Recent: 122 lb 14.4 oz I&O - Last 24 Hours: Intake & Output 06/22/17 06/23/17 06/23/17 22:59 06:59 14:59 Intake Total 1190 400 Output Total 525 300 Balance 665 100 Lab Results Last 24 Hours: Laboratory Results - last 24 hr 06/22/17 06/23/17 06/23/17 Range/Units 15:58 05:45 05:45 WBC 11.22 H (3.98-10.04) K/mm3 RBC 3.60 L (3.98-5.22) M/mm3 Hgb 10.7 L (11.2-15.7) gm/L Hct 34.1 (34.1-44.9) % MCV 94.7 (79.4-94.8) fl MCH 29.7 (25.6-32.2) pg MCHC 31.4 L (32.2-35.5) g/dl RDW Std Deviation 47.6 H (36.4-46.3) fL Plt Count 182 (182-369) K/mm3 MPV 11.5 (9.4-12.3) fl Neut % (Auto) 80.5 H (34.0-71.1) % Lymph % (Auto) 10.6 L (19.3-51.7) % Daniels % (Auto) 7.9 (4.7-12.5) % Eos % (Auto) 0.3 L (0.7-5.8) Baso % (Auto) 0.4 (0.1-1.2) % Neut # (Auto) 9.03 H (1.56-6.13) K/mm3 Lymph # (Auto) 1.19 (1.18-3.74) K/mm3 Daniels # (Auto) 0.89 H (0.24-0.36) K/mm3 Eos # (Auto) 0.03 L (0.04-0.36) K/mm3 Baso # (Auto) 0.05 (0.01-0.08) K/mm3 Puncture Site Rt radial ABG pH 7.51 H (7.35-7.45) ABG pCO2 36.1 (35.0-45.0) mmHg ABG pO2 43.0 L (80.0-100.0) mmHg ABG HCO3 28.7 H (22.0-26.0) meq/L ABG O2 Saturation 77.0 L (96.0-97.0) % ABG Base Excess 5.7 H (-2-2.0) A-a Gradient 104 mmHg O2 Delivery Device Venturi Oxygen Flow Rate 4.0 FiO2 30.00 (21.00-100.00) % Sodium 146 H (136-145) mEq/L Potassium 4.0 (3.5-5.1) mEq/L Chloride 108 H (98-107) mEq/L Carbon Dioxide 31 (21-32) mEq/L Anion Gap 11.0 (5-15) BUN 38 H (7-18) mg/dL Creatinine 1.5 H (0.55-1.02) mg/dL Est Cr Clr Drug Dosing 25.40 mL/min Estimated GFR (MDRD) 33 (>60) mL/min BUN/Creatinine Ratio 25.3 H (14-18) Glucose 128 H (83-115) mg/dL Calcium 9.1 (8.5-10.1) mg/dL Magnesium 2.1 (1.8-2.4) mg/dl C-Reactive Protein 11.8 H* (<1.0) mg/dL Med Orders - Current: Current Medications Acetaminophen (Tylenol) 650 mg PO Q6H PRN PRN Reason: Fever Last Admin: 06/22/17 21:09 Dose: 650 mg Acetaminophen (Tylenol) 650 mg RECTAL Q6H PRN PRN Reason: Fever Albuterol/Ipratropium (Duoneb 3.0-0.5 Mg/3 Ml) 3 ml NEB QIDRT [facility] Last Admin: 06/23/17 06:29 Dose: 3 ml Aspirin (Aspirin) 81 mg PO DAILY [facility] Bumetanide (Bumex) 1 mg PO DAILY [facility] Donepezil HCl (Aricept) 10 mg PO BEDTIME [facility] Last Admin: 06/22/17 20:14 Dose: 10 mg Enoxaparin Sodium (Lovenox) 30 mg SUBCUT DAILY [facility] Last Admin: 06/22/17 08:06 Dose: 30 mg Hydralazine HCl (Apresoline) 20 mg IVPUSH Q8H PRN PRN Reason: Hypertension Levofloxacin/Dextrose 750 mg/ (Premix) 150 mls @ 100 mls/hr IV Q48H [facility] Piperacillin Sod/Tazobactam (Sod 4.5 gm/ Sodium Chloride) 100 mls @ 25 mls/hr IV Q8H [facility] Levalbuterol HCl (Xopenex) 1.25 mg NEB Q4HRRT [facility] Lorazepam (Ativan) 0.5 mg IVPUSH Q4H PRN PRN Reason: restlessness Memantine (Namenda) 10 mg PO BID [facility] Last Admin: 06/22/17 20:14 Dose: 10 mg Methylprednisolone Sodium Succinate (Solu-Medrol) 125 mg IVPUSH Q8H [facility] Last Admin: 06/23/17 07:15 Dose: 125 mg Metoprolol Succinate (Toprol Xl) 25 mg PO DAILY [facility] Last Admin: 06/22/17 08:20 Dose: 25 mg Metoprolol Tartrate (Lopressor) 5 mg IVPUSH Q4H PRN PRN Reason: Tachycardia Last Admin: 06/23/17 06:04 Dose: 5 mg Morphine Sulfate (Morphine) 0.25 mg IVPUSH Q4H PRN PRN Reason: Shortness of Breath Last Admin: 06/23/17 03:09 Dose: 0.25 mg Morphine Sulfate (Morphine) 0.5 mg IVPUSH Q2H PRN PRN Reason: restlessness/SOB/pain Last Admin: 06/23/17 07:17 Dose: 0.5 mg Pantoprazole Sodium (Protonix) 40 mg PO DAILY [facility] Last Admin: 06/22/17 09:42 Dose: Not Given Potassium Chloride (Potassium Chloride) 40 meq PO DAILY [facility] Stop: 06/23/17 09:01 Last Admin: 06/22/17 08:08 Dose: 40 meq Trospium (Sanctura) 20 mg PO ACBREAKFAST [facility] Last Admin: 06/23/17 06:51 Dose: 20 mg Discontinued Medications Albuterol (Proventil Neb Soln) 2.5 mg NEB Q4HRRT PRN PRN Reason: Shortness of Breath Last Admin: 06/21/17 12:21 Dose: 2.5 mg Albuterol/Ipratropium (Duoneb 3.0-0.5 Mg/3 Ml) 3 ml NEB ONETIME ONE Stop: 06/21/17 00:13 Last Admin: 06/21/17 00:21 Dose: 3 ml Aspirin (Halfprin) 162 mg PO ONETIME ONE Stop: 06/22/17 14:01 Last Admin: 06/22/17 14:33 Dose: 162 mg Bumetanide (Bumex) 0.5 mg IVPUSH ONETIME ONE Stop: 06/22/17 14:01 Last Admin: 06/22/17 14:33 Dose: 0.5 mg Bumetanide (Bumex) 1 mg IVPUSH ONETIME ONE Stop: 06/23/17 06:50 Last Admin: 06/23/17 07:15 Dose: 0.5 mg Furosemide (Lasix) 20 mg IVPUSH NOW ONE Stop: 06/21/17 01:59 Last Admin: 06/21/17 02:11 Dose: 20 mg Furosemide (Lasix) 20 mg IVPUSH ONETIME ONE Stop: 06/21/17 16:01 Last Admin: 06/21/17 15:20 Dose: 20 mg Ceftriaxone Sodium 1 gm/ (Sodium Chloride) 100 mls @ 200 mls/hr IV ONETIME ONE Stop: 06/21/17 01:59 Last Admin: 06/21/17 01:36 Dose: 200 mls/hr Azithromycin 500 mg/ Sodium (Chloride) 250 mls @ 250 mls/hr IV ONETIME ONE Stop: 06/21/17 02:30 Last Admin: 06/21/17 02:18 Dose: 250 mls/hr Sodium Chloride (Normal Saline) 1,000 mls @ 25 mls/hr IV ASDIRECTED [facility] Stop: 06/25/17 03:31 Last Admin: 06/21/17 07:12 Dose: 25 mls/hr Azithromycin 500 mg/ Sodium (Chloride) 250 mls @ 250 mls/hr IV Q24H [facility] Last Admin: 06/22/17 09:50 Dose: 250 mls/hr Sodium Chloride (Sodium Chloride 0.45%) 1,000 mls @ 50 mls/hr IV ASDIRECTED [facility] Last Admin: 06/21/17 12:36 Dose: 50 mls/hr Ceftriaxone Sodium 2 gm/ (Sodium Chloride) 100 mls @ 200 mls/hr IV Q24H [facility] Last Admin: 06/22/17 13:13 Dose: 200 mls/hr Lorazepam (Ativan) 0.25 mg IVPUSH Q4H PRN PRN Reason: Anxiety Last Admin: 06/23/17 05:00 Dose: 0.25 mg Metoprolol Succinate (Toprol Xl) 25 mg PO ONETIME ONE Stop: 06/21/17 15:41 Last Admin: 06/21/17 15:52 Dose: 25 mg Morphine Sulfate (Morphine) Confirm Administered Dose 2 mg .ROUTE .STK-MED ONE Stop: 06/22/17 16:14 Last Admin: 06/22/17 16:23 Dose: Not Given Pantoprazole Sodium (Protonix) 40 mg PO ONETIME ONE Stop: 06/21/17 16:01 Last Admin: 06/21/17 15:52 Dose: 40 mg - Exam Quality Assessment: Supplemental Oxygen (15L NRBM- sats mid 80's), DVT Prophylaxis General: Alert, Cooperative, No Acute Distress (no resp distress) HEENT: Pupils Equal, Pupils Reactive, EOMI, Mucous Membr. Moist/[place] Neck: Supple Lungs: Normal Respiratory Effort, Decreased Breath Sounds (throughout), Rales ( minimal to bases bilat). No: Rhonchi, Wheezing Cardiovascular: Regular Rhythm, Tachycardia GI/Abdominal Exam: Normal Bowel Sounds, Soft, Non-Tender (Female) Exam: Deferred Extremities: Normal Inspection, Other (teds bilat to LE) Peripheral Pulses: 1+: Dorsalis Pedis (L), Dorsalis Pedis (R) Skin: Warm, Dry Neurological: Other (pleasantly confused- dementia) Psy/Mental Status: Alert, Other (pleasant, talkative, nonsensical speech most of the time) - Problem List & Annotations (1) Pneumonia SNOMED Code(s): 976715892 Code(s): J18.9 - PNEUMONIA, UNSPECIFIED ORGANISM Status: Acute Priority: High Current Visit: Yes Qualifiers: Pneumonia type: due to unspecified organism Laterality: bilateral Lung location: lower lobe of lung Qualified Code(s): J18.9 - Pneumonia, unspecified organism (2) Hypoxemia SNOMED Code(s): 954109319 Code(s): R09.02 - HYPOXEMIA Status: Acute Priority: High Current Visit : Yes (3) Congestive heart failure SNOMED Code(s): 07396390 Code(s): I50.9 - HEART FAILURE, UNSPECIFIED Status: Acute Priority: High Current Visit: Yes Qualifiers: Congestive heart failure type: unspecified congestive heart failure type Congestive heart failure chronicity: acute on chronic Qualified Code(s): I50.9 - Heart failure, unspecified (4) Elevated troponin SNOMED Code(s): 289751286, 533415928 Code(s): R74.8 - ABNORMAL LEVELS OF OTHER SERUM ENZYMES Status: Acute Priority: High Current Visit: Yes (5) Demand ischemia SNOMED Code(s): 348576385 Code(s): I24.8 - OTHER FORMS OF ACUTE ISCHEMIC HEART DISEASE Status: Acute Priority: High Current Visit: Yes (6) Confusion SNOMED Code(s): 395748631 Code(s): R41.0 - DISORIENTATION, UNSPECIFIED Status: Chronic Priority: Medium Current Visit: Yes (7) Dementia SNOMED Code(s): 45322888 Code(s): F03.90 - UNSPECIFIED DEMENTIA WITHOUT BEHAVIORAL DISTURBANCE Status: Chronic Priority: High Current Visit: Yes Qualifiers: Dementia type: Alzheimer's disease Alzheimer's disease onset: other onset Dementia behavioral disturbance: without behavioral disturbance Qualified Code(s): G30.8 - Other Alzheimer's disease; F02.80 - Dementia in other diseases classified elsewhere without behavioral disturbance (8) Renal insufficiency SNOMED Code(s): 963134803, 401931925 Code(s): N28.9 - DISORDER OF KIDNEY AND URETER, UNSPECIFIED Status: Chronic Priority: High Current Visit: Yes (9) Anemia SNOMED Code(s): 439278272 Code(s): D64.9 - ANEMIA, UNSPECIFIED Status: Acute Priority: Medium Current Visit: Yes Qualifiers: Anemia type: unspecified type Qualified Code(s): D64.9 - Anemia, unspecified - Problem List Review Problem List Initiated/Reviewed/Updated: Yes - My Orders Last 24 Hours: My Active Orders 06/23/17 06:49 Morphine 0.5 mg IVPUSH Q2H PRN 06/23/17 06:50 Chest 1V Frontal [CR] Urgent 06/23/17 06:52 RT Aerosol Therapy [RC] ASDIRECTED 06/23/17 06:53 LORazepam [Ativan] 0.5 mg IVPUSH Q4H PRN 06/23/17 07:00 methylPREDNISolone Sod Succ [Solu-MEDROL] 125 mg IVPUSH Q8H 06/23/17 08:15 Levofloxacin/Dextrose 5%-Water [Levaquin in D5W 750 MG/150 ML] 750 mg Premix Bag 1 bag IV Q24H Piperacillin/Tazobactam [Zosyn] 4.5 gm Sodium Chloride 0.9% [Normal Saline] 100 ml IV Q8H 06/23/17 08:16 BLOOD GAS ARTERIAL [BG] Urgent 06/23/17 10:00 Levalbuterol HCl [Xopenex] 1.25 mg NEB Q4HRRT - Plan Plan:: Impression: Acute: Bilat LL PNA--worsening - Risk factor:Alzheimer's Dementia (High risk for Aspiration), Hx/o COPD and Still on Active Smoker - IS Q2 awake - Continue IV abx- due to worsening, changed abx to zosyn and levaquin this am - Follow Up CXR this am shows bilateral worsing of LL pneumonia Hypoxia - Likely 2/2 above +/- CHF - Continue Supplemental O2--now on 15L NRB, worsening of ABG, unable to keep sats >90% overnight - Titrate to keep O2 sat bet 88-90% - RT care to continue; change albuterol to xopenex due to tachycardia overnight Systolic HF, LVEF unknown - Hx/o CABG - No 2D echo avail for review - Daily diuretic - BNP 2246 ---> 2571 - 2D echo now-----unable due to tachycardia, cannot perform until HR <110 - Salt restriction -Bumex 0.5mg IVP early this am -Worsening of CHF findings on CXR this am AMI, can not exclude type 1 - Has chronic Troponin Leak since 11/08/2015 - Continue Lovenox SubQ, BB and Statin - Start low dose ASA at 81 mg po daily in am and 162 mg po x 1 now Resolved: S/p Febrile with AMS Chronic: CAD S/p CABG Hx/o COPD HTN HLD CKD Stage 3 OAB/Urinary Retention Alzheimer's Dementia Nicotine Dependence Vit B12 Deficiency Hx/o Melena and GI Bleed Plan: She is deteriorating clinically; unable to maintain stats with NRB at 15L, worsening of CXR--worsening PNA and CHF status. Early this am I did put in orders for change in abx, IV solumedrol x 1 dose, IV bumex x 1 dose, increase IV ativan and IV morphine doses. Dr. Obrien spoke with family as did SW- reviewing poor prognosis later this morning. Family has decided for Comfort Care only and to DC today with Hospice care. Will arrange for DC today, this afternoon. Family will arrange for DC home with hospice services. Code Status: Changed to DNR/DNI---Comfort Care only; will DC telemetry, Neb tx, PT/OT; for now will cont with other current meds and tx until discharge this afternoon.
[2017-06-23] MEDS: Potassium Chloride 10% 20 MEQ/15 ML Soln 30 ML UD Cup PO SCH ×2 (08:27→08:46)
--- NOTE | 2017-06-23 08:29 | CR ---
Chest: Portable view of the chest was obtained. Heart is enlarged. Pulmonary vessels are congested. Bilateral pleural effusions are seen. Asymmetric increased density remains within both lung bases, worse on the left side from prior exam. Impression: 1. Findings suspicious for continued CHF with interstitial edema. 2. Increasing density within the left base from prior study with differential remaining the same as the right side (asymmetric pulmonary edema versus pneumonia). Diagnostic code #3
--- NOTE | 2017-06-23 08:54 | PCM.SN ---
- Free Text/Narrative Note: Patient seen and examined with family at bedside. Informed them, she had a rough night overnight and was not very compliant. Patient looked clinically worse and hemodynamically unstable with heart rates in the 150s. After talking to her family, they decided comfort measures at this point. I also met with her son and he wanted 2D echo done. Family will inform me where to go from here pending patient's course. Warned family, this maybe the beginning of her progressive if not rapid decline. Prognosis is guarded-serious at this point. Will switch to DNR/DNI/Comfort Measures per family's request.
[2017-06-23] MEDS ORDERED: Aspirin 81 MG Tab.Chew PO SCH (09:00)
[2017-06-23] MEDS ORDERED: Bumetanide 1 MG Tab PO SCH (09:00)
[2017-06-23] MEDS ORDERED: Diltiazem 25 MG/5 ML SDV IVPUSH ONE (09:19)
[2017-06-23] MEDS ORDERED: Levalbuterol HCl 1.25 MG/3 ML Neb NEB SCH (10:00)
[2017-06-23] MEDS ORDERED: Piperacillin/Tazobactam 4.5 GM in Sodium Chloride 0.9% 100 ML IV ONE (10:00)
[2017-06-23 12:05] VITALS: BP 118/65
--- NOTE | 2017-06-23 12:49 | PCM.DCSUM1 ---
Discharge Summary - Hospital Course Free Text/Narrative:: This is an 81-year-old female. Apparently today she was having a mild stomachache and this evening began to get short of breath and an ambulance was called and they noted her pulse ox was 66% on room air. Even on 6 L by nasal cannula because she doesn't tolerate the mask her pulse ox at 88%. I spoke to the daughter and she indicates that she noted recently that the patient's feet are somewhat puffy. She has no history of congestive heart failure no history of asthma. 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 The patient does have fairly severe dementia she is a DNR and DO NOT INTUBATE patient according to the daughter. I can get no further information from the patient herself. She does have a snuff container inspector that stays with her but the snuff container inspector did not come tonight and so I can't glean any further information. According to the daughter the patient and doing fine the last few days with no increasing cough no fever no chills no nausea vomiting or any other acute symptoms. Hospitalist service is consulted for admission for hypoxia and Pneumonia. Patient was hsopitalized for [address] on IV abx at family request. CXR revealed RLL PNA and findings of CHF. BNP was also elevated. She was pleasantly confused. Patient was hydrated. Aggressive RT treatment provided. She was diuresed with IV bumex. IV soumedrol was started. She was noncompliant with wearing supplemental oxygen via NC, mask and NRB. Upon her removing mask she would drop her saturations into the 50-60% range. HR continued to increase. She continued to deteriorate clinically. Echocardiogram was ordered, however family and POA declined this study be done. Family met with Dr. Obrien to review continued decline with decision made to go [facility]. Family elects for discharge home today with Hospice Care to continue at home. SW is arranging this and working diligently with family to get Hospice care services in place for discharge later this afternoon. - Discharge Data Discharge Date: 06/23/17 (admit date 06/21/17) Discharge Disposition: DC/Tfer to Hospice - Home 50 Condition: Good - Discharge Diagnosis/Problem(s) (1) Pneumonia SNOMED Code(s): 201937282 ICD Code: J18.9 - PNEUMONIA, UNSPECIFIED ORGANISM Status: Acute Priority : High Current Visit: Yes Qualifiers: Qualified Code(s): J18.9 - Pneumonia, unspecified organism (2) Hypoxemia SNOMED Code(s): 377946352 ICD Code: R09.02 - HYPOXEMIA Status: Acute Priority: High Current Visit : Yes (3) Congestive heart failure SNOMED Code(s): 40835519 ICD Code: I50.9 - HEART FAILURE, UNSPECIFIED Status: Acute Priority: High Current Visit: Yes Qualifiers: Qualified Code(s): I50.9 - Heart failure, unspecified (4) Elevated troponin SNOMED Code(s): 626465124, 696275158 ICD Code: R74.8 - ABNORMAL LEVELS OF OTHER SERUM ENZYMES Status: Acute Priority: High Current Visit: Yes (5) Demand ischemia SNOMED Code(s): 301020724 ICD Code: I24.8 - OTHER FORMS OF ACUTE ISCHEMIC HEART DISEASE Status: Acute Priority: High Current Visit: Yes (6) Confusion SNOMED Code(s): 703733966 ICD Code: R41.0 - DISORIENTATION, UNSPECIFIED Status: Chronic Priority: Medium Current Visit: Yes (7) Dementia SNOMED Code(s): 26239734 ICD Code: F03.90 - UNSPECIFIED DEMENTIA WITHOUT BEHAVIORAL DISTURBANCE Status: Chronic Priority: High Current Visit: Yes Qualifiers: Qualified Code(s): G30.8 - Other Alzheimer's disease; F02.80 - Dementia in other diseases classified elsewhere without behavioral disturbance (8) Renal insufficiency SNOMED Code(s): 968175236, 576852771 ICD Code: N28.9 - DISORDER OF KIDNEY AND URETER, UNSPECIFIED Status: Chronic Priority: High Current Visit: Yes (9) Anemia SNOMED Code(s): 858090923 ICD Code: D64.9 - ANEMIA, UNSPECIFIED Status: Acute Priority: Medium Current Visit: Yes Qualifiers: Qualified Code(s): D64.9 - Anemia, unspecified - Patient Summary/Data Operative Procedure(s) Performed: None Complications: None Consults: Consultations 06/22/17 09:00 Consult to Equipment Operator [employer] [CONS] Routine Labs Pending at D/C: None Recommended Follow-up Testing/Procedures: None Hospice Consult upon discharge home. Planned Operative Procedure(s) after DC: None Hospital Course: As above - Patient Instructions Diet: Usual Diet as Tolerated Activity: As Tolerated Driving: Do Not Drive Showering/Bathing: May Shower Notify Provider of: Fever, Increased Pain - Discharge Plan Prescriptions/Med Rec: LORazepam [Ativan] 0.5 mg PO Q4H #10 tablet Home Medications: Home Meds Cyanocobalamin (Vitamin B-12) [Vitamin B-12] 1 tab PO DAILY 11/08/15 [History] Solifenacin Succinate [Vesicare] 10 mg PO DAILY 11/08/15 [History] Donepezil [Aricept] 10 mg PO BEDTIME 09/29/16 [History] Metoprolol Succinate [Toprol XL] 25 mg PO DAILY 09/29/16 [History] Memantine [Namenda] 10 mg PO BID 10/03/16 [History] amLODIPine/atorvaSTATin [Amlodipine-Atorvast 10-20 mg] 1 tab PO DAILY 10/03/16 [ History] Pantoprazole [ProTONIX] 40 mg PO DAILY 06/21/17 [History] Acetaminophen [Tylenol] 650 mg PO Q6H PRN #0 cup 06/23/17 [Rx] LORazepam [Ativan] 0.5 mg PO Q4H #10 tablet 06/23/17 [Rx] Patient Handouts: Smoking Hazards, Smoking Cessation, Tips for Success, Heart Failure, [id number], Hospice, About Your Loved One's Last Days, Community- Acquired Pneumonia, Adult, [id number] Referrals: Priya Onofre MD [Primary Care Provider] - - Discharge Summary/Plan Comment DC Time >30 min.: Yes (40 min) - General Info Date of Service: 06/23/17 Admission Dx/Problem (Free Text: Admission Diagnosis/Problem Admission Diagnosis/Problem Pneumonia Patient seen early this morning; nursing reported hypoxic most of the night with sats at best of 90% on NRB mask despite efforts and RT interventions/ treatments. Patient anxious early in shift, but ativan order given and rec'd with some relief- rested well after that. Patient is alert and pleasant when I see her this morning, does not appear in distress at all. Confused. Denies c/o pain, SOB, CP, unsure of how much she comprehends as also has baseline dementia and talks jibberish most of our conversation. Nursing reports during my exam and visit is "the best she has been all night". She is tachycardic csr with HR's up to 150's; IV lopressor given. B/P's are stable. Functional Status: Reports: Pain Controlled - Review of Systems General: Denies: Fever HEENT: Reports: No Symptoms Pulmonary: Reports: Other (denies SOB but visably with resp distress if without supplemental oxygen). Denies: Shortness of Breath Cardiovascular: Reports: No Symptoms. Denies: Chest Pain Gastrointestinal: Reports: No Symptoms Genitourinary: Reports: No Symptoms Neurological: Reports: Confusion Psychiatric: Reports: Confusion - Patient Data Vitals - Most Recent: Last Vital Signs Temp 98.2 F 06/23/17 11:40 Pulse 87 06/23/17 11:40 Resp 14 06/23/17 11:40 BP 118/65 06/23/17 11:40 Pulse Ox 85 L 06/23/17 11:40 Weight - Most Recent: 122 lb 14.4 oz I&O - Last 24 hours: Intake & Output 06/22/17 06/23/17 06/23/17 22:59 06:59 14:59 Intake Total 1190 400 180 Output Total 525 300 Balance 665 100 180 Lab Results - Last 24 hrs: Laboratory Results - last 24 hr 06/22/17 06/23/17 06/23/17 Range/Units 15:58 05:45 05:45 WBC 11.22 H (3.98-10.04) K/mm3 RBC 3.60 L (3.98-5.22) M/mm3 Hgb 10.7 L (11.2-15.7) gm/L Hct 34.1 (34.1-44.9) % MCV 94.7 (79.4-94.8) fl MCH 29.7 (25.6-32.2) pg MCHC 31.4 L (32.2-35.5) g/dl RDW Std Deviation 47.6 H (36.4-46.3) fL Plt Count 182 (182-369) K/mm3 MPV 11.5 (9.4-12.3) fl Neut % (Auto) 80.5 H (34.0-71.1) % Lymph % (Auto) 10.6 L (19.3-51.7) % [place] % (Auto) 7.9 (4.7-12.5) % Eos % (Auto) 0.3 L (0.7-5.8) Baso % (Auto) 0.4 (0.1-1.2) % Neut # (Auto) 9.03 H (1.56-6.13) K/mm3 Lymph # (Auto) 1.19 (1.18-3.74) K/mm3 [place] # (Auto) 0.89 H (0.24-0.36) K/mm3 Eos # (Auto) 0.03 L (0.04-0.36) K/mm3 Baso # (Auto) 0.05 (0.01-0.08) K/mm3 Puncture Site Rt radial ABG pH 7.51 H (7.35-7.45) ABG pCO2 36.1 (35.0-45.0) mmHg ABG pO2 43.0 L (80.0-100.0) mmHg ABG HCO3 28.7 H (22.0-26.0) meq/L ABG O2 Saturation 77.0 L (96.0-97.0) % ABG Base Excess 5.7 H (-2-2.0) A-a Gradient 104 mmHg O2 Delivery Device Venturi Oxygen Flow Rate 4.0 FiO2 30.00 (21.00-100.00) % Sodium 146 H (136-145) mEq/L Potassium 4.0 (3.5-5.1) mEq/L Chloride 108 H (98-107) mEq/L Carbon Dioxide 31 (21-32) mEq/L Anion Gap 11.0 (5-15) BUN 38 H (7-18) mg/dL Creatinine 1.5 H (0.55-1.02) mg/dL Est Cr Clr Drug Dosing 25.40 mL/min Estimated GFR (MDRD) 33 (>60) mL/min BUN/Creatinine Ratio 25.3 H (14-18) Glucose 128 H (83-115) mg/dL Calcium 9.1 (8.5-10.1) mg/dL Magnesium 2.1 (1.8-2.4) mg/dl C-Reactive Protein 11.8 H* (<1.0) mg/dL B-Natriuretic Peptide (0-100) pg/mL 06/23/17 06/23/17 Range/Units 05:45 08:16 WBC (3.98-10.04) K/mm3 RBC (3.98-5.22) M/mm3 Hgb (11.2-15.7) gm/L Hct (34.1-44.9) % MCV (79.4-94.8) fl MCH (25.6-32.2) pg MCHC (32.2-35.5) g/dl RDW Std Deviation (36.4-46.3) fL Plt Count (182-369) K/mm3 MPV (9.4-12.3) fl Neut % (Auto) (34.0-71.1) % Lymph % (Auto) (19.3-51.7) % [place] % (Auto) (4.7-12.5) % Eos % (Auto) (0.7-5.8) Baso % (Auto) (0.1-1.2) % Neut # (Auto) (1.56-6.13) K/mm3 Lymph # (Auto) (1.18-3.74) K/mm3 [place] # (Auto) (0.24-0.36) K/mm3 Eos # (Auto) (0.04-0.36) K/mm3 Baso # (Auto) (0.01-0.08) K/mm3 Puncture Site Rt radial ABG pH 7.46 H (7.35-7.45) ABG pCO2 42.5 (35.0-45.0) mmHg ABG pO2 38.0 L* (80.0-100.0) mmHg ABG HCO3 29.6 H (22.0-26.0) meq/L ABG O2 Saturation 45.9 L (96.0-97.0) % ABG Base Excess 5.6 H (-2-2.0) A-a Gradient 549 mmHg O2 Delivery Device Nrb Oxygen Flow Rate 15.0 FiO2 0.00 L (21.00-100.00) % Sodium (136-145) mEq/L Potassium (3.5-5.1) mEq/L Chloride (98-107) mEq/L Carbon Dioxide (21-32) mEq/L Anion Gap (5-15) BUN (7-18) mg/dL Creatinine (0.55-1.02) mg/dL Est Cr Clr Drug Dosing mL/min Estimated GFR (MDRD) (>60) mL/min BUN/Creatinine Ratio (14-18) Glucose (83-115) mg/dL Calcium (8.5-10.1) mg/dL Magnesium (1.8-2.4) mg/dl C-Reactive Protein (<1.0) mg/dL B-Natriuretic Peptide 2641 H (0-100) pg/mL Med Orders - Current: Current Medications Acetaminophen (Tylenol) 650 mg PO Q6H PRN PRN Reason: Fever Last Admin: 06/22/17 21:09 Dose: 650 mg Acetaminophen (Tylenol) 650 mg RECTAL Q6H PRN PRN Reason: Fever Aspirin (Aspirin) 81 mg PO DAILY [facility] Last Admin: 06/23/17 08:24 Dose: 81 mg Bumetanide (Bumex) 1 mg PO DAILY [facility] Last Admin: 06/23/17 08:24 Dose: 1 mg Donepezil HCl (Aricept) 10 mg PO BEDTIME [facility] Last Admin: 06/22/17 20:14 Dose: 10 mg Enoxaparin Sodium (Lovenox) 30 mg SUBCUT DAILY [facility] Last Admin: 06/23/17 08:25 Dose: 30 mg Hydralazine HCl (Apresoline) 20 mg IVPUSH Q8H PRN PRN Reason: Hypertension Levofloxacin/Dextrose 750 mg/ (Premix) 150 mls @ 100 mls/hr IV Q48H [facility] Last Admin: 06/23/17 08:25 Dose: 100 mls/hr Piperacillin Sod/Tazobactam (Sod 4.5 gm/ Sodium Chloride) 100 mls @ 25 mls/hr IV Q8H [facility] Lorazepam (Ativan) 0.5 mg IVPUSH Q4H PRN PRN Reason: restlessness Memantine (Namenda) 10 mg PO BID [facility] Last Admin: 06/23/17 08:25 Dose: 10 mg Methylprednisolone Sodium Succinate (Solu-Medrol) 125 mg IVPUSH Q8H [facility] Last Admin: 06/23/17 07:15 Dose: 125 mg Metoprolol Succinate (Toprol Xl) 25 mg PO DAILY [facility] Last Admin: 06/23/17 08:23 Dose: 25 mg Metoprolol Tartrate (Lopressor) 5 mg IVPUSH Q4H PRN PRN Reason: Tachycardia Last Admin: 06/23/17 08:29 Dose: 5 mg Morphine Sulfate (Morphine) 0.5 mg IVPUSH Q2H PRN PRN Reason: restlessness/SOB/pain Last Admin: 06/23/17 07:17 Dose: 0.5 mg Pantoprazole Sodium (Protonix) 40 mg PO DAILY [facility] Last Admin: 06/23/17 08:24 Dose: 40 mg Trospium (Sanctura) 20 mg PO ACBREAKFAST [facility] Last Admin: 06/23/17 06:51 Dose: 20 mg Discontinued Medications Albuterol (Proventil Neb Soln) 2.5 mg NEB Q4HRRT PRN PRN Reason: Shortness of Breath Last Admin: 06/21/17 12:21 Dose: 2.5 mg Albuterol/Ipratropium (Duoneb 3.0-0.5 Mg/3 Ml) 3 ml NEB ONETIME ONE Stop: 06/21/17 00:13 Last Admin: 06/21/17 00:21 Dose: 3 ml Albuterol/Ipratropium (Duoneb 3.0-0.5 Mg/3 Ml) 3 ml NEB QIDRT [facility] Last Admin: 06/23/17 10:09 Dose: Not Given Aspirin (Halfprin) 162 mg PO ONETIME ONE Stop: 06/22/17 14:01 Last Admin: 06/22/17 14:33 Dose: 162 mg Bumetanide (Bumex) 0.5 mg IVPUSH ONETIME ONE Stop: 06/22/17 14:01 Last Admin: 06/22/17 14:33 Dose: 0.5 mg Bumetanide (Bumex) 1 mg IVPUSH ONETIME ONE Stop: 06/23/17 06:50 Last Admin: 06/23/17 07:15 Dose: 0.5 mg Diltiazem HCl (Diltiazem) 10 mg IVPUSH ONETIME ONE Stop: 06/23/17 09:20 Last Admin: 06/23/17 11:36 Dose: Not Given Furosemide (Lasix) 20 mg IVPUSH NOW ONE Stop: 06/21/17 01:59 Last Admin: 06/21/17 02:11 Dose: 20 mg Furosemide (Lasix) 20 mg IVPUSH ONETIME ONE Stop: 06/21/17 16:01 Last Admin: 06/21/17 15:20 Dose: 20 mg Ceftriaxone Sodium 1 gm/ (Sodium Chloride) 100 mls @ 200 mls/hr IV ONETIME ONE Stop: 06/21/17 01:59 Last Admin: 06/21/17 01:36 Dose: 200 mls/hr Azithromycin 500 mg/ Sodium (Chloride) 250 mls @ 250 mls/hr IV ONETIME ONE Stop: 06/21/17 02:30 Last Admin: 06/21/17 02:18 Dose: 250 mls/hr Sodium Chloride (Normal Saline) 1,000 mls @ 25 mls/hr IV ASDIRECTED [facility] Stop: 06/25/17 03:31 Last Admin: 06/21/17 07:12 Dose: 25 mls/hr Azithromycin 500 mg/ Sodium (Chloride) 250 mls @ 250 mls/hr IV Q24H [facility] Last Admin: 06/22/17 09:50 Dose: 250 mls/hr Sodium Chloride (Sodium Chloride 0.45%) 1,000 mls @ 50 mls/hr IV ASDIRECTED [facility] Last Admin: 06/21/17 12:36 Dose: 50 mls/hr Ceftriaxone Sodium 2 gm/ (Sodium Chloride) 100 mls @ 200 mls/hr IV Q24H [facility] Last Admin: 06/22/17 13:13 Dose: 200 mls/hr Piperacillin Sod/Tazobactam (Sod 4.5 gm/ Sodium Chloride) 100 mls @ 200 mls/hr IV ONETIME ONE Stop: 06/23/17 10:29 Last Admin: 06/23/17 11:37 Dose: Not Given Levalbuterol HCl (Xopenex) 1.25 mg NEB Q4HRRT [facility] Last Admin: 06/23/17 09:31 Dose: 1.25 mg Lorazepam (Ativan) 0.25 mg IVPUSH Q4H PRN PRN Reason: Anxiety Last Admin: 06/23/17 05:00 Dose: 0.25 mg Metoprolol Succinate (Toprol Xl) 25 mg PO ONETIME ONE Stop: 06/21/17 15:41 Last Admin: 06/21/17 15:52 Dose: 25 mg Morphine Sulfate (Morphine) 0.25 mg IVPUSH Q4H PRN PRN Reason: Shortness of Breath Last Admin: 06/23/17 03:09 Dose: 0.25 mg Morphine Sulfate (Morphine) Confirm Administered Dose 2 mg .ROUTE .STK-MED ONE Stop: 06/22/17 16:14 Last Admin: 06/22/17 16:23 Dose: Not Given Pantoprazole Sodium (Protonix) 40 mg PO ONETIME ONE Stop: 06/21/17 16:01 Last Admin: 06/21/17 15:52 Dose: 40 mg Potassium Chloride (Potassium Chloride) 40 meq PO DAILY [facility] Stop: 06/23/17 09:01 Last Admin: 06/23/17 08:46 Dose: Not Given - Exam Quality Assessment: Reports: Supplemental Oxygen (15L NRBM), DVT Prophylaxis General: Reports: Alert HEENT: Reports: Pupils Equal, Mucous Membr. Moist/[place] Neck: Reports: Supple Lungs: Reports: Decreased Breath Sounds (thoughout all [place]) Cardiovascular: Reports: Tachycardia GI/Abdominal Exam: Normal Bowel Sounds, Soft, Non-Tender (Female) Exam: Deferred Rectal (Female) Exam: Deferred Extremities: No Pedal Edema, Other (teds bilat) Neurological: Reports: No New Focal Deficit, Other (nonsensical speech) Psy/Mental Status: Reports: Alert *Q Meaningful Use (DIS) - VTE *Q VTE Criteria *Q: - Stroke *Q Stroke Criteria *Q: - AMI *Q AMI Criteria *Q:
[2017-06-23] MEDS ORDERED: Piperacillin/Tazobactam 4.5 GM in Sodium Chloride 0.9% 100 ML IV SCH (18:00)
== END 2017-06-23 15:45 | disposition hospice, home (50) | DRG 194 ==
LOC: JD.ED → JD.MS 02:10
PROVIDERS: ADMIT Internal Medicine Cardiovascular Disease; ATTEND Internal Medicine Cardiovascular Disease
DX: J18.1 Lobar pneumonia, unspecified organism (principal); I50.9 Heart failure, unspecified; J18.9 Pneumonia, unspecified organism; I25.10 Atherosclerotic heart disease of native coronary artery without angina pectoris; I10 Essential (primary) hypertension; I24.8 Other forms of acute ischemic heart disease; I13.0 Hypertensive heart and chronic kidney disease with heart failure and stage 1 through stage 4 chronic kidney disease, or unspecified chronic kidney disease; R09.02 Hypoxemia; G30.9 Alzheimer's disease, unspecified; F02.80 Dementia in other diseases classified elsewhere, unspecified severity, without behavioral disturbance, psychotic disturbance, mood disturbance, and anxiety; R74.8 Abnormal levels of other serum enzymes; R41.0 Disorientation, unspecified; N18.9 Chronic kidney disease, unspecified; Z79.899 Other long term (current) drug therapy; Z51.5 Encounter for palliative care; Z95.1 Presence of aortocoronary bypass graft; Z66 Do not resuscitate
CPT/HCPCS: 36415; 71010; 80053; 83605; 83880; 84484; 85025; 86738; 87040 ×2; 93005; 94664; 96365; 99285; J0696; J7030; 36600; 80048; 82803; 83735; 85027; 86140; 94640-76; 94761; 96367; 96375; 97162-GP; 97167-GO; 97530-GO; 99284; A9270-GY; J0456; J1650; J1940; J1956; J2060; J2270; J2930; J3490; J7040; J7050